=== PATIENT | female | born 1990 | race Caucasian/White ===

== ENCOUNTER → 2019-06-05 | Outpatient (CLI) | payer OTHER ==
--- NOTE | 2019-06-06 14:03 | US ---
EXAMINATION TYPE: US thyroid st tissue head/neck DATE OF EXAM: 06/05/2019 COMPARISON: NONE CLINICAL HISTORY: R94.6 Abnormal Labs. GLAND SIZE: Right Lobe: 5.7 x 1.5 x 1.5 cm Overall Parenchyma: homogenous Left Lobe: 5.4 x 1.5 x 1.7 cm Overall Parenchyma: homogeneous Isthmus Thickness: 0.3 cm NODULES RIGHT: # of nodules measured on right: 0 LEFT: # of nodules measured on left: 0 ISTHMUS: # of nodules measured in the isthmus: 0 Bilateral neck scanned, no evidence of lymphadenopathy. Normal appearing thyroid. IMPRESSION: Normal thyroid ultrasound
== END ==
LOC: RADUSWWP 15:47
PROVIDERS: ATTEND Family Medicine
DX: R94.6 Abnormal results of thyroid function studies (principal)
CPT/HCPCS: 76536

== ENCOUNTER 2021-01-05 10:06 | Day surgery (SDC) | payer OTHER ==
[2021-01-03 11:16] VITALS: BMI 21.8
[~2021-01-05 10:06] MED LIST: LACTATED RINGERS 1,000 ML IV SCH; LIDOCAINE 1% (10MG/ML) FOR IV START INTRADERMA PRN
[2021-01-05 10:31] VITALS: TEMP 98.2
[2021-01-05] MEDS ORDERED: LACTATED RINGERS 1,000 ML IV ONE (10:41)
[2021-01-05] MEDS ORDERED: MIDAZOLAM 2 MG/2 ML VIAL ONE (11:54)
[2021-01-05] MEDS ORDERED: PROPOFOL 10 MG/ML 20 ML VIAL IV ONE (11:54)
[2021-01-05] MEDS ORDERED: LIDOCAINE 1% INJ 10MG/ML (20 ML MDV) ONE (11:54)
[2021-01-05] MEDS ORDERED: fentaNYL (PF) 50 MCG/ML 2 ML AMP ONE (11:54)
--- NOTE | 2021-01-05 12:39 | P.PCN ---
Date of Procedure: 01/05/21 Description of Procedure: BRIEF HISTORY: Patient is a 30-year-old female presenting for outpatient colonoscopy for evaluation of left lower quadrant pain and change in bowel habits. Patient reports alternating constipation and diarrhea. Symptoms of going on for many years. She also reports left lower quadrant pain. PROCEDURE PERFORMED: Colonoscopy with polypectomy and biopsy. PREOPERATIVE DIAGNOSIS: Change in bowel habits/altered bowel function, left lower quadrant abdominal pain, no prior colonoscopy. ESTIMATED BLOOD LOSS: Minimal. IV sedation per Anesthesia. PROCEDURE: After informed consent was obtained, the patient, was brought into the endoscopy unit. IV sedation was administered by Anesthesia under continuous monitoring. Digital rectal examination was normal. Initially the Olympus CF-190 flexible video colonoscope was then inserted in the rectum, gradually advanced into the cecum without any difficulty. Careful examination was performed as the scope was gradually being withdrawn. Ileocecal valve and the appendiceal orifice were visualized and appeared normal. Prep was excellent. Mucosa of the cecum, ascending colon, transverse colon, descending colon, sigmoid colon, and rectum appeared normal, with random biopsies taken of the right and left colon. Termi nal ileum appeared normal with random biopsies taken. A diminutive 2 mm cecal polyp next to the appendiceal opening was removed with cold forcep polypectomy. Retroflexion was performed in the rectum and no lesions were seen. The patient tolerated the procedure well. IMPRESSION: Normal-appearing colon from rectum to cecum and terminal ileum, with random biopsies taken of the terminal ileum, right colon and left colon. Diminutive cecal polyp removed with cold forcep polypectomy. RECOMMENDATIONS: Findings of this examination were discussed with the patient and her family. Okay to resume diet. Okay to resume medications. Await pathology from biopsies and polypectomy. Recommend repeat colonoscopy in 7 years if polypectomy is significant for tubular adenoma otherwise she can start screening at 46 years old.
[2021-01-05 12:56] VITALS: BP 121/85; PULSE 74; RESP 17
== END 2021-01-05 13:07 | disposition home or self-care (01) ==
LOC: ORWHC2ENDO 10:06
PROVIDERS: ATTEND Internal Medicine
DX: D12.0 Benign neoplasm of cecum (principal); R19.4 Change in bowel habit; R10.32 Left lower quadrant pain; Z79.3 Long term (current) use of hormonal contraceptives; J45.909 Unspecified asthma, uncomplicated
CPT/HCPCS: 81025; 88305; 45380; J2250; J2001; J3010; J2704